=== PATIENT | male | born 1965 | race Hispanic/Latino ===

== ENCOUNTER 2019-11-01 08:23 | Outpatient (CLI) | payer BC ==
[2019-11-01 09:05] LABS: Basophils # (Auto) 0.1 K/mm3 (0.0-0.1); Basophils % (Auto) 0.7 % (0.0-1.8); Eosinophils # (Auto) 0.3 K/mm3 (0.0-0.4); Eosinophils % (Auto) 3.6 % (0.0-4.3); Hematocrit 53.8 % (35.5-45.6); Hemoglobin 18.6 gm/dl (11.8-15.2); Lymphocytes # (Auto) 1.7 K/mm3 (1.2-5.4); Lymphocytes % (Auto) 22.1 % (13.4-35.0); Mean Corpuscular HGB Conc 35 % (32-34); Mean Corpuscular Volume 84 fl (84-94); Monocytes # (Auto) 0.8 K/mm3 (0.0-0.8); Monocytes % (Auto) 10.8 % (0.0-7.3); Platelet Count 181 K/mm3 (140-440); Red Blood Count 6.39 M/mm3 (3.65-5.03); Red Cell Distribution Width 13.2 % (13.2-15.2)
[2019-11-01 09:23] LABS: Alanine Aminotransferase 24 units/L (7-56); Albumin 4.3 g/dL (3.9-5); BUN/Creatinine Ratio 27; Blood Urea Nitrogen 16 mg/dL (9-20); Calcium 9.7 mg/dL (8.4-10.2); Chol/HDL Ratio 3.31 %; HDL Cholesterol 41 mg/dL (40-59); Hemolysis Index 15; LDL Cholesterol,Direct 56 mg/dL (50-130)
[2019-11-01 09:28] LABS: Erythrocyte Sedimentation Rate 1 mm/Hr (0-20)
[2019-11-05 10:24] LABS: Vitamin D, 25-OH, D2 <4 ng/mL
[2019-11-05 14:07] LABS: ANA Screen, IFA Positive (Negative)
== END 2019-11-01 08:24 | disposition home or self-care (01) ==
LOC: LAB 08:23
PROVIDERS: ATTEND Internal Medicine
DX: Z00.00 Encounter for general adult medical examination without abnormal findings (principal); Z13.29 Encounter for screening for other suspected endocrine disorder; Z13.21 Encounter for screening for nutritional disorder; E11.65 Type 2 diabetes mellitus with hyperglycemia; E78.5 Hyperlipidemia, unspecified; M13.0 Polyarthritis, unspecified
CPT/HCPCS: 36415; 80053; 80061; 82306; 82607; 83036; 84443; 85025; 85652; 86038; 86140; 86618

== ENCOUNTER 2020-02-05 07:29 | Outpatient (CLI) | payer BC ==
--- NOTE | 2020-02-05 08:35 | Ultrasound Report ---
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 COMPARISON: No relevant prior imaging study available. FINDINGS: Pancreas: No significant abnormality. Abdominal Aorta: No significant abnormality. IVC: No significant abnormality. Liver: The liver measures 19.1 cm in length. The liver echotexture appears slightly coarsened echoge shannon. No focal liver mass is appreciated.. Normal hepatopedal blood flow in the main portal vein. Gallbladder: Cholecystectomy. Bile ducts: No significant abnormality. Common bile duct measures 3.4 mm. Kidneys: Right: 13.9 cm in length. No significant abnormality. Left: 14.3 cm in length. No signif icant abnormality. Spleen: The spleen is unremarkable and measures 12.4 x 6.3 cm in axial plane.. Free fluid: None. Additional Findings: None. IMPRESSION: Mildly enlarged and echogenic liver which could represent steatosis or other parenchymal disease. No focal liver mass. Cholecystectomy. Normal spleen.. Signer Name: Jason Johnson Jr, MD Signed: 02/05/2020 8:31 AM Workstation Name: [id number]
== END 2020-02-05 07:30 | disposition home or self-care (01) ==
LOC: US 07:29
PROVIDERS: ATTEND Internal Medicine Hematology & Oncology
DX: K76.89 Other specified diseases of liver (principal); D75.1 Secondary polycythemia; Z90.49 Acquired absence of other specified parts of digestive tract
CPT/HCPCS: 76700